=== PATIENT | female | born 1950 | race Caucasian/White ===

== ENCOUNTER 2018-11-01 13:20 | Inpatient (IN) | payer MEDICARE, MEDICAID ==
[~2018-11-01] VITALS: Ht 160 cm; Wt 81.6 kg
--- NOTE | 2018-11-01 13:27 | NUR ---
"[id number] FROM [facility], C/O SOB, FEVER, COUGHING x 1 WEEK" PT ALERT, AWAKE, PT ON MONITOR, VSS, PT TO BED 5, PENDING MD LANG
[2018-11-01] MEDS ORDERED: ACETAMINOPHEN ES 500 MG TABLET PO ONE (13:30)
[2018-11-01] MEDS ORDERED: VANCOMYCIN 1 GM in IV D5W 250 ML IV ONE (13:30)
[2018-11-01] MEDS ORDERED: PIPERACILLIN /TAZOBACTAM 3.375 G in IV D5W 50 ML IV ONE (13:30)
[2018-11-01] MEDS ORDERED: IV NS 0.9% 1,000 ML BAG IV ONE (13:30)
[2018-11-01] MEDS ORDERED: ACETAMINOPHEN ES 500 MG TABLET ONE (13:41)
[2018-11-01 13:43] LABS: BASOPHILS # (AUTO) 0.1 /CMM (0.0-0.2); BASOPHILS % (AUTO) 0.6 % (0.0-2.0); EOSINOPHILS % (AUTO) 0.8 % (0.0-6.0); HEMATOCRIT 48 % (33-45); HEMOGLOBIN 15.8 g/dL (11.5-14.8); LYMPHOCYTES # (AUTO) 0.8 /CMM (0.8-4.8); LYMPHOCYTES % (AUTO) 5.1 % (20.0-44.0); MEAN CORPUSCULAR HGB CONC 33 g/dl (31.0-36.0); MEAN CORPUSCULAR VOLUME 95 fL (82-100); MONOCYTES # (AUTO) 0.5 /CMM (0.1-1.30); NEUTROPHILS # (AUTO) 14.9 /CMM (1.8-8.9); NEUTROPHILS % (AUTO) 90.5 % (43.0-81.0); PLATELET COUNT (AUTO) 259 /CMM (150-450); RED BLOOD CELL COUNT(AUTO) 5.04 MIL/uL (4.0-5.2); WHITE BLOOD COUNT (AUTO) 16.5 K/uL (4.3-11.0)
[2018-11-01 13:57] LABS: ALBUMIN 3.7 g/dL (3.4-5.0); BILIRUBIN,DIRECT 0.2 mg/dL (0.0-0.2); BILIRUBIN,TOTAL 0.6 mg/dL (0.2-1.0); CALCIUM, SERUM 9.6 mg/dL (8.5-10.1); CREATININE 1.2 mg/dL (0.6-1.3); TOTAL PROTEIN, SERUM 7.8 g/dL (6.4-8.2)
--- NOTE | 2018-11-01 14:00 | NUR ---
LEONARDO (SON) CAN BE CONTACTED AT FOR UPDATES AND QUESTIONS
[2018-11-01 14:02] LABS: POTASSIUM 2.6 mmol/L (3.5-5.1)
--- NOTE | 2018-11-01 14:05 | NUR ---
UNIT AIDE TECH (ZARINA) PAGED FOR JORDAN
[2018-11-01 14:06] LABS: APPEARANCE,URINE Cloudy (CLEAR); BILIRUBIN,URINE Negative (NEGATIVE); BLOOD, URINE Small Ery/uL (NEGATIVE); COLOR,URINE Yellow (YELLOW); KETONES,URINE Negative (NEGATIVE); LEUKOCYTE ESTERASE ,URINE Negative (NEGATIVE); NITRITE, URINE Positive (NEGATIVE); PH,URINE 5.5 (5.0-8.0); PROTEIN,URINE Trace mg/dl (NEGATIVE); UGLUCOSE Negative (NEGATIVE); UROBILINOGEN,URINE 0.2 EU/dL (0.2)
[2018-11-01] MEDS ORDERED: POTASSIUM CL. PREMIX PERIPHER. 50 ML ONE ×2 (14:09→14:45)
[2018-11-01 14:10] LABS: ABG BASE EXCESS 8.2 mmol/L; ABG OXYGEN SATURATION 98.3 % (92.0-98.5); ABG PCO2 46.3 mmHg (35.0-45.0); ABG PH 7.472 (7.350-7.450); ABG PO2 144.7 mmHg (75.0-100.0); AaDO2 232.2 mmHg; COHb 5.4 % (0.5-1.5); MetHb 0.3 % (0.0-1.5); O2Hb 92.7 % (94.0-97.0); SITE, ABG Right Radial; VENT MODE, BG 10L SM
[2018-11-01] MEDS ORDERED: GABA600T12 PO (14:12)
[2018-11-01] MEDS ORDERED: FURO-144 PO (14:12)
[2018-11-01] MEDS ORDERED: CLON2TAB PO (14:12)
[2018-11-01] MEDS ORDERED: OXYB10TA4 PO (14:12)
[2018-11-01] MEDS ORDERED: NA P133E RC (14:12)
[2018-11-01] MEDS ORDERED: ZOLP5TAB2 PO (14:12)
[2018-11-01] MEDS ORDERED: HYDR-3976 PO (14:12)
[2018-11-01] MEDS ORDERED: ESCI10TA PO (14:12)
[2018-11-01] MEDS ORDERED: MULT-439 PO (14:12)
[2018-11-01] MEDS ORDERED: LEVO150T8 PO (14:12)
[2018-11-01] MEDS ORDERED: METH500T7 PO (14:12)
[2018-11-01] MEDS ORDERED: POTA20TA83 PO (14:12)
[2018-11-01] MEDS ORDERED: POLY17PO4 PO (14:12)
[2018-11-01] MEDS ORDERED: DOCU-141 PO (14:12)
[2018-11-01] MEDS ORDERED: ATEN50TA PO (14:12)
[2018-11-01] MEDS ORDERED: DICL100G16 TP (14:12)
[2018-11-01] MEDS ORDERED: BISA10SU11 RC (14:12)
[2018-11-01] MEDS ORDERED: TYL2T PO (14:12)
[2018-11-01] MEDS ORDERED: HYDR25TA4 PO (14:12)
[2018-11-01] MEDS ORDERED: MAGN400O6 PO (14:12)
[2018-11-01] MEDS ORDERED: CELE200C PO (14:12)
[2018-11-01] MEDS ORDERED: PANT20TA2 PO (14:12)
[2018-11-01] MEDS ORDERED: TRAM50TA2 PO ×2 (14:12)
[2018-11-01 14:13] LABS: BACTERIA,URINE Moderate /HPF (None Seen); SQUAMOUS EPITHELIAL CELL,UR Few /HPF (None Seen); WBC,URINE 0-3 /HPF (0-3)
[2018-11-01] MEDS: POTASSIUM CL. PREMIX PERIPHER. 50 ML IV SCH ×4 (14:16→18:50)
--- NOTE | 2018-11-01 14:53 | NUR ---
RECIEVED BED 107
[2018-11-01] MEDS ORDERED: MAGNESIUM HYDROXIDE 30 ML UDC PO PRN (15:00)
[2018-11-01] MEDS ORDERED: ONDANSETRON HCL/PF 4 MG/2 ML VIAL IVP PRN (15:00)
[2018-11-01] MEDS ORDERED: MAG HYDROX/AL HYDROX/SIMETH 30 ML UDC PO PRN (15:00)
[2018-11-01] MEDS ORDERED: ACETAMINOPHEN 325 MG TABLET PO PRN (15:00)
[2018-11-01] MEDS ORDERED: Z GUARD REMEDY 2 OZ OINT TP PRN (15:00)
--- NOTE | 2018-11-01 15:08 | NUR ---
REPORT GIVEN TO HAKEEM FIGUEROA FOR SUSHMA PT WILL BE TRANSPORTED TO 1ST FLOOR VIA ACLS PROTOCOL
[2018-11-01] MEDS ORDERED: FEE PK DOSING 1 MIN EA MC ONE (15:25)
[2018-11-01] MEDS ORDERED: BISACODYL SUPP (10 MG) 10 MG/SUPP.RECT SUPP.RECT RC PRN (15:30)
--- NOTE | 2018-11-01 15:58 | NUR ---
PT TRANSPORTED TO 1ST FLOOR
[2018-11-01 16:00] VITALS: BP 106/46
--- NOTE | 2018-11-01 16:00 | NUR ---
VEGETABLE FARM WORKER NOTES RECEIVED PATIENT FROM ER, DX SEPSIS BY VICKI SRINIVASAN NP. AO X 1-2, LETHARGIC, ABLE TO ANSWER QUESTIONS, ON 4 LPM NASAL CANULA, NOT IN ANY DISTRESS, DENIES PAIN, SR HR 56 ON TELE MONITOR. RAC G 20 AND LFA G20 IV ACCESS, BOTH FLUSHES WELL, BOTH SITES CLEAR. PATIENT WITH ONGOING KCL INFUSING TO RAC. WILL TRANSFUSE ADDITIONAL BAG FOR TOTAL ORDER OF 4 BAGS FROM ER. WITH DIAPER. UNIT ORIENTATION DONE. USE OF CALL LIGHT, BED LOW LOCKED. WILL CONT TO MONITOR.
--- NOTE | 2018-11-01 16:25 | NUR ---
COCKTAIL LOUNGE MANAGER NOTES DR. DORSEY AT BEDSIDE. ABLE TO SPEAK TO PATIENT. ORDERED FOR K DUR 3 DOSES.
[2018-11-01 16:52] LABS: THYROID STIMULATING HORMONE 0.757 uIU/mL (0.358-3.74)
[2018-11-01 16:55] LABS: MAGNESIUM 2.2 mg/dL (1.8-2.4)
[2018-11-01] MEDS: clonazePAM 1 MG TABLET PO SCH ×2 (17:00→17:14)
[2018-11-01] MEDS: POTASSIUM CHLORIDE 20 MEQ TAB.PRT.SR PO SCH ×6 (17:00→22:44)
[2018-11-01] MEDS ORDERED: clonazePAM 2 MG TABLET PO SCH (17:00)
[2018-11-01] MEDS ORDERED: DICLOFENAC TOPICAL 100 GM GEL..GM. TP SCH (17:00)
[2018-11-01] MEDS: DOCUSATE SODIUM 100 MG CAPSULE PO SCH ×2 (17:00→17:14)
[2018-11-01] MEDS: METHOCARBAMOL (500MG) 500 MG TABLET PO SCH ×2 (17:00→17:14)
[2018-11-01] MEDS: GABAPENTIN 300 MG CAPSULE PO SCH ×2 (17:00→17:13)
[2018-11-01] MEDS: ENOXAPARIN SODIUM 40 MG/0.4 ML DISP.SYRIN SQ SCH (17:32)
--- NOTE | 2018-11-01 17:56 | NUR ---
MINE MANAGER NOTES MEDICATIONS NOT GIVEN. PATIENT TOO LETHARGIC
[2018-11-01] MEDS ORDERED: PIPERACILLIN /TAZOBACTAM 3.375 G in IV D5W 50 ML IV SCH (18:00)
--- NOTE | 2018-11-01 18:05 | NUR ---
TILER NOTES PATIENT REMAINS LETHARGIC. O2 SAT MORE THAN 90%. CHARGE NURSE SOON AWARE. MADE AWARE.
[2018-11-01 18:30] VITALS: BP 106/46
--- NOTE | 2018-11-01 19:33 | NUR ---
ZIGZAG APPLIQUER NOTES ALL NEEDS MET AT THIS TIME. NOT IN DISTRESS. ENDORSED TO NEXT SHIFT FOR SUSHMA.
[2018-11-01 20:00] VITALS: BP_SYST 92; BP_SYST 97; BP_DIAS 49
--- NOTE | 2018-11-01 20:00 | NUR ---
MS RN NOTE PT IN BED LETHARGIC, NO SOB, NO DISTRESS OR DISCOMFORT NOTED. NO S/S OF PAIN NOTED. SL RAC AND LFA INTACT AND PATENT. ALL NEEDS ATTENDED. VSS CONTINUE TO MONITOR HER. Addendum: 11/02/18 at 0334 by LARRY CARPENTER RN CHARTED ACCIDENTLY UNDER WRONG EMPLOYEE.
--- NOTE | 2018-11-01 21:00 | NUR ---
MS FIGUEROA NOTE PT IS MORE AWAKE NOW. A/O X 2-3. NO DISTRESS NOTED. K JESSE GIVEN ORDERED. CONTINUE TO MONITOR HER. Addendum: 11/02/18 at 0334 by LARRY CARPENTER RN CHARTED ACCIDENTLY UNDER WRONG EMPLOYEE.
[2018-11-01] MEDS ORDERED: POTASSIUM CHLORIDE 20 MEQ TAB.PRT.SR PO ONE (21:14)
[2018-11-01] MEDS: PIPERACILLIN /TAZOBACTAM 3.375 G in IV D5W 100 ML IV SCH (21:19)
[2018-11-01] MEDS: ZOLPIDEM TARTRATE 5 MG TABLET PO SCH (21:28)
[2018-11-02] VITALS: BP 115/35
[2018-11-02] MEDS: POTASSIUM CHLORIDE 20 MEQ TAB.PRT.SR PO SCH (01:06)
[2018-11-02 04:00] VITALS: BP 119/64
[2018-11-02 05:00] VITALS: BP 119/64
[2018-11-02] MEDS: PIPERACILLIN /TAZOBACTAM 3.375 G in IV D5W 100 ML IV SCH ×3 (05:31→21:06)
[2018-11-02 06:51] LABS: CALCIUM, SERUM 8.4 mg/dL (8.5-10.1); CARBON DIOXIDE 35 mmol/L (21-32); CHLORIDE 105 mmol/L (98-107); CREATININE 0.9 mg/dL (0.6-1.3); GLUCOSE 86 mg/dL (74-106); POTASSIUM 3.4 mmol/L (3.5-5.1); SODIUM SERUM 145 mmol/L (136-145); UREA NITROGEN, BLOOD 13 mg/dL (7-18)
[2018-11-02 06:54] LABS: MAGNESIUM 2.2 mg/dL (1.8-2.4); PHOSPHORUS 2.4 mg/dL (2.5-4.9)
--- NOTE | 2018-11-02 06:58 | NUR ---
MS RN NOTE PT IN BED ASLEEP AROUSABLE. NO DISTRESS OR DISCOMFORT NOTED. DENIES PAIN. SL INTACT AND PATENT. SIDE RAILS UP X 2 AND CALL LIGHT WITHIN REACH. WILL ENDORSE TO DAY SHIFT NURSE FOR CONTINUE TO CARE.
--- NOTE | 2018-11-02 07:30 | NUR ---
PATIENT RESTING IN ROOM - EYES CLOSED- CHEST RISING AND FALLING- NO S/S OD DISTRESS- SAFETY PRECAUTIONS IN PLACE- RECEIVED BEDSIDE SBAR- WILL CONTINUE TO MONITOR REPORT AND RECORD
[2018-11-02 07:35] LABS: BASOPHILS # (AUTO) 0.1 /CMM (0.0-0.2); BASOPHILS % (AUTO) 0.6 % (0.0-2.0); EOSINOPHILS % (AUTO) 1.5 % (0.0-6.0); HEMATOCRIT 42 % (33-45); HEMOGLOBIN 13.9 g/dL (11.5-14.8); LYMPHOCYTES # (AUTO) 1.8 /CMM (0.8-4.8); LYMPHOCYTES % (AUTO) 12.3 % (20.0-44.0); MEAN CORPUSCULAR HGB CONC 33 g/dl (31.0-36.0); MEAN CORPUSCULAR VOLUME 95 fL (82-100); MONOCYTES # (AUTO) 0.8 /CMM (0.1-1.30); MONOCYTES % (AUTO) 5.4 % (2.0-12.0); NEUTROPHILS # (AUTO) 11.8 /CMM (1.8-8.9); NEUTROPHILS % (AUTO) 80.2 % (43.0-81.0); PLATELET COUNT (AUTO) 200 /CMM (150-450); RED BLOOD CELL COUNT(AUTO) 4.46 MIL/uL (4.0-5.2); WHITE BLOOD COUNT (AUTO) 14.8 K/uL (4.3-11.0)
[2018-11-02 08:00] VITALS: BP 122/56
[2018-11-02 08:19] LABS: CHOLESTEROL 185 mg/dL (<200); HDL CHOLESTEROL 32 mg/dL (40-60); LDL 123 mg/dL (0-99); THYROID STIMULATING HORMONE 0.374 uIU/mL (0.358-3.74); TRIGLYCERIDES 144 mg/dL (30-150)
[2018-11-02] MEDS ORDERED: ATENOLOL 50 MG TABLET PO SCH (09:00)
[2018-11-02] MEDS: clonazePAM 1 MG TABLET PO SCH ×2 (09:42→16:41)
[2018-11-02] MEDS: DOCUSATE SODIUM 100 MG CAPSULE PO SCH ×2 (09:42→16:41)
[2018-11-02] MEDS: POLYETHYLENE GLYCOL 3350 17 GM POWD.PACK PO SCH (09:42)
[2018-11-02] MEDS: METHOCARBAMOL (500MG) 500 MG TABLET PO SCH ×3 (09:42→17:53)
[2018-11-02] MEDS: MULTIVIT W/MINERALS 1 TAB TABLET PO SCH (09:43)
[2018-11-02] MEDS: GABAPENTIN 300 MG CAPSULE PO SCH ×2 (09:43→16:41)
[2018-11-02] MEDS: PANTOPRAZOLE 40 MG TABLET.DR PO SCH (09:43)
[2018-11-02] MEDS: LEVOTHYROXINE SODIUM 75 MCG TABLET PO SCH (09:43)
[2018-11-02] MEDS: CELECOXIB 100 MG CAPSULE PO SCH (09:43)
[2018-11-02] MEDS: OXYBUTYNIN CHLORIDE ER 5 MG TAB PO SCH (09:51)
[2018-11-02] MEDS: ESCITALOPRAM OXALATE (10 MG) 10 MG TABLET PO SCH (09:52)
[2018-11-02] MEDS: VANCOMYCIN 1 GM in IV D5W 250 ML IV SCH (09:52)
[2018-11-02 09:53] LABS: ABG BASE EXCESS 11.6 mmol/L; ABG OXYGEN SATURATION 98.9 % (92.0-98.5); ABG PCO2 54.8 mmHg (35.0-45.0); ABG PH 7.456 (7.350-7.450); ABG PO2 222.1 mmHg (75.0-100.0); AaDO2 145.4 mmHg; COHb 3.7 % (0.5-1.5); MetHb 0.3 % (0.0-1.5); O2Hb 94.9 % (94.0-97.0); SITE, ABG Left Brachial; VENT MODE, BG NON REBREATHER
[2018-11-02] MEDS ORDERED: IV NS 0.9% 250 ML IV ONE (10:52)
[2018-11-02] MEDS ORDERED: CT SWABBABLE VALVE TRANS SET 1 EA INFUS.SET MC ONE (10:52)
[2018-11-02] MEDS ORDERED: IOHEXOL-300 100 ML VIAL IV ONE (10:52)
[2018-11-02] MEDS ORDERED: POTASSIUM CHLORIDE 20 MEQ TAB.PRT.SR PO SCH (12:00)
--- NOTE | 2018-11-02 13:14 | NUR ---
patient rest in bed watching tv- safety precautions in place- vitals stable- no complaints of pain - patient ambulating with assist to bathroom- will continue to monitor report and record
[2018-11-02] MEDS ORDERED: K PHOS NEUTRAL 250 MG TABLET PO ONE (14:00)
[2018-11-02 16:00] VITALS: BP 118/58
--- NOTE | 2018-11-02 16:04 | NUR ---
patient resting in room - about to go to radiology for a head CT- no complaints of pain - safety precautions in place- vitals stable - will continue to monitor report and record
[2018-11-02] MEDS ORDERED: VANCOMYCIN HCL 1 GM in IV D5W 260 ML IV ONE (16:30)
[2018-11-02] MEDS: ASPIRIN 81 MG TAB.CHEW PO SCH (17:53)
--- NOTE | 2018-11-02 18:20 | NUR ---
patient currently eating in bed- safety precautions in place- will provide bedside sbar to oncoming - will continue to monitor report and record
--- NOTE | 2018-11-02 19:00 | NUR ---
MS RN NOTE RECEIVED PT IN STABLE CONDITION A/O X 2-3, CURRENTLY IN BED SPEAKING ON THE PHONE. NO SIGNS OF SOB OR DISTRESS, NO C/O PAIN. IV IN RAC #[address] WITH IV ZOSYN INFUSING. ALL CURRENT NEEDS MET. BED LOW, LOCKED, UPPER RAILS UP, AND CALL LIGHT WITHIN REACH. WILL CONT.TO MONITOR.
[2018-11-02 20:00] VITALS: BP 134/48
[2018-11-02] MEDS: HYDROCODONE/APAP 5/325MG 1 EACH TABLET PO PRN (21:06)
[2018-11-02] MEDS: ZOLPIDEM TARTRATE 5 MG TABLET PO SCH (21:06)
[2018-11-02] MEDS: ENOXAPARIN SODIUM 40 MG/0.4 ML DISP.SYRIN SQ SCH (21:06)
[2018-11-02] MEDS: ATORVASTATIN 40 MG TABLET PO SCH (21:06)
[2018-11-03] MEDS: VANCOMYCIN 1 GM in IV D5W 250 ML IV SCH ×2 (01:18→21:22)
[2018-11-03] MEDS: HYDROCODONE/APAP 5/325MG 1 EACH TABLET PO PRN ×5 (01:26→21:52)
[2018-11-03 04:00] VITALS: BP 112/43
[2018-11-03] MEDS: PIPERACILLIN /TAZOBACTAM 3.375 G in IV D5W 100 ML IV SCH ×3 (04:18→21:22)
[2018-11-03] MEDS: PANTOPRAZOLE 40 MG TABLET.DR PO SCH (06:32)
--- NOTE | 2018-11-03 06:37 | NUR ---
MS RN NOTE PT IN STABLE CONDITION A/O X 2-3, CURRENTLY IN BED SPEAKING ON THE PHONE. NO SIGNS OF SOB OR DISTRESS, NO C/O PAIN. IV IN R WRIST #[address] WITH IV ZOSYN INFUSING. ALL CURRENT NEEDS MET. BED LOW, LOCKED, UPPER RAILS UP, AND CALL LIGHT WITHIN REACH. WILL CONT.TO MONITOR AND ENDORSE TO NEXT SHIFT FOR SUSHMA.
--- NOTE | 2018-11-03 07:00 | NUR ---
MS RN OPENING RECEIVED PATIENT IN BED SLEEPING. A/OX3. NO ACUTE DISTRESS OR SOB NOTED. SPEECH DELAYED. FACE SYMMETRICAL, SHOULDER SHRUG AND FINGER NETWORK SYSTEMS ADMINISTRATOR EQUAL. NO ONE SIDED WEAKNESS, DENIES HEADACHE. R WRIST 24G IV C/D/I. AMBULATORY. CALL LIGHT WITHIN REACH, WILL CONTINUE TO MONITOR
[2018-11-03 08:00] VITALS: BP 107/59
[2018-11-03] MEDS: POLYETHYLENE GLYCOL 3350 17 GM POWD.PACK PO SCH (09:03)
[2018-11-03] MEDS: CELECOXIB 100 MG CAPSULE PO SCH (09:04)
[2018-11-03] MEDS: clonazePAM 1 MG TABLET PO SCH ×2 (09:04→16:17)
[2018-11-03] MEDS: ESCITALOPRAM OXALATE (10 MG) 10 MG TABLET PO SCH (09:05)
[2018-11-03] MEDS: ASPIRIN 81 MG TAB.CHEW PO SCH (09:05)
[2018-11-03] MEDS: METHOCARBAMOL (500MG) 500 MG TABLET PO SCH ×3 (09:05→16:17)
[2018-11-03] MEDS: GABAPENTIN 300 MG CAPSULE PO SCH ×2 (09:06→16:19)
[2018-11-03] MEDS: OXYBUTYNIN CHLORIDE ER 5 MG TAB PO SCH (09:06)
[2018-11-03] MEDS: DOCUSATE SODIUM 100 MG CAPSULE PO SCH ×2 (09:06→16:19)
[2018-11-03] MEDS: MULTIVIT W/MINERALS 1 TAB TABLET PO SCH (09:06)
[2018-11-03] MEDS: LEVOTHYROXINE SODIUM 75 MCG TABLET PO SCH (09:14)
[2018-11-03] MEDS: CARVEDILOL 12.5 MG TABLET PO SCH ×2 (09:15→21:52)
[2018-11-03] MEDS ORDERED: FUROSEMIDE 40 MG/4 ML VIAL IV SCH (09:30)
--- NOTE | 2018-11-03 11:46 | NUR ---
PATIENT TAKEN TO CT
[2018-11-03] MEDS ORDERED: IV NS 0.9% 250 ML IV ONE (11:54)
[2018-11-03] MEDS ORDERED: CT SWABBABLE VALVE TRANS SET 1 EA INFUS.SET MC ONE (11:54)
[2018-11-03] MEDS ORDERED: IOHEXOL-350 100 ML VIAL IV ONE (11:54)
[2018-11-03 14:39] LABS: BASOPHILS # (AUTO) 0.2 /CMM (0.0-0.2); BASOPHILS % (AUTO) 1.5 % (0.0-2.0); EOSINOPHILS % (AUTO) 2.3 % (0.0-6.0); HEMATOCRIT 42 % (33-45); LYMPHOCYTES % (AUTO) 9.8 % (20.0-44.0); MEAN CORPUSCULAR HGB CONC 33 g/dl (31.0-36.0); MEAN CORPUSCULAR VOLUME 95 fL (82-100); MONOCYTES # (AUTO) 0.3 /CMM (0.1-1.30); MONOCYTES % (AUTO) 3.2 % (2.0-12.0); NEUTROPHILS # (AUTO) 8.2 /CMM (1.8-8.9); NEUTROPHILS % (AUTO) 83.2 % (43.0-81.0); PLATELET COUNT (AUTO) 192 /CMM (150-450); RED BLOOD CELL COUNT(AUTO) 4.42 MIL/uL (4.0-5.2); WHITE BLOOD COUNT (AUTO) 9.9 K/uL (4.3-11.0)
[2018-11-03 14:47] LABS: CALCIUM, SERUM 8.3 mg/dL (8.5-10.1); CREATININE 1.1 mg/dL (0.6-1.3)
[2018-11-03 14:53] LABS: POTASSIUM 2.6 mmol/L (3.5-5.1)
--- NOTE | 2018-11-03 15:03 | NUR ---
RECEIVED CALL FROM TASIA AT LAB, CRIT POTASSIUM LEVEL. CALLED DR. RUTLEDGE [facility]IA [facility], RECEIVED ORDERS
[2018-11-03 16:00] VITALS: BP 117/56
[2018-11-03] MEDS: POTASSIUM CHLORIDE 20 MEQ TAB.PRT.SR PO SCH ×2 (16:17→19:28)
--- NOTE | 2018-11-03 18:00 | NUR ---
DR. BRICENO AWARE OF CTA BRAIN RESULTS. ORDERED CONSULT FOR DR. GARNER. LEFT MESSAGE IN OFFICE VOICEMAIL
[2018-11-03] MEDS: MUPIROCIN OINT 2% 22 GM TUBE SCH ×2 (18:56→21:23)
--- NOTE | 2018-11-03 19:37 | NUR ---
MS RN CLOSING PATIENT A/OX3. NO ACUTE DISTRESS OR SOB NOTED. ON ROOM AIR, SPO2 94%. SPEECH DELAYED. FACE SYMMETRICAL, SHOULDER SHRUG AND FINGER PLASTIC SHAPER EQUAL. NO ONE SIDED WEAKNESS, DENIES HEADACHE. IV SITE X3 C/D/I. AMBULATORY. BED LOCKED, LOW, BED ALARM ON, SIDE RAILS UPX2, CALL LIGHT WITHIN REACH. ENDORSED TO NOC RN FOR SUSHMA.
[2018-11-03 20:00] VITALS: BP 111/54
[2018-11-03] MEDS: ENOXAPARIN SODIUM 40 MG/0.4 ML DISP.SYRIN SQ SCH (21:50)
[2018-11-03] MEDS: ZOLPIDEM TARTRATE 5 MG TABLET PO SCH (21:53)
[2018-11-03] MEDS: ATORVASTATIN 40 MG TABLET PO SCH (21:54)
[2018-11-04 04:00] VITALS: BP 121/57
[2018-11-04] MEDS: PIPERACILLIN /TAZOBACTAM 3.375 G in IV D5W 100 ML IV SCH (05:00)
[2018-11-04] MEDS: LEVOTHYROXINE SODIUM 75 MCG TABLET PO SCH (07:19)
[2018-11-04] MEDS: PANTOPRAZOLE 40 MG TABLET.DR PO SCH (07:19)
[2018-11-04] MEDS: HYDROCODONE/APAP 5/325MG 1 EACH TABLET PO PRN ×2 (07:21→13:45)
[2018-11-04 07:57] LABS: CALCIUM, SERUM 8.4 mg/dL (8.5-10.1); CREATININE 0.9 mg/dL (0.6-1.3); POTASSIUM 3.6 mmol/L (3.5-5.1)
[2018-11-04 08:00] VITALS: BP_SYST 120; BP_SYST 124; BP_DIAS 60; BP_DIAS 66
[2018-11-04] MEDS: MUPIROCIN OINT 2% 22 GM TUBE SCH (08:59)
[2018-11-04] MEDS: METHOCARBAMOL (500MG) 500 MG TABLET PO SCH ×2 (08:59→13:34)
[2018-11-04] MEDS: CARVEDILOL 12.5 MG TABLET PO SCH (09:01)
[2018-11-04] MEDS: CELECOXIB 100 MG CAPSULE PO SCH (09:01)
[2018-11-04] MEDS: ESCITALOPRAM OXALATE (10 MG) 10 MG TABLET PO SCH (09:01)
[2018-11-04] MEDS: clonazePAM 1 MG TABLET PO SCH (09:02)
[2018-11-04] MEDS: MULTIVIT W/MINERALS 1 TAB TABLET PO SCH (09:02)
[2018-11-04] MEDS: GABAPENTIN 300 MG CAPSULE PO SCH (09:02)
[2018-11-04] MEDS: ASPIRIN 81 MG TAB.CHEW PO SCH (09:02)
[2018-11-04] MEDS: POLYETHYLENE GLYCOL 3350 17 GM POWD.PACK PO SCH (09:02)
[2018-11-04] MEDS: DOCUSATE SODIUM 100 MG CAPSULE PO SCH (09:03)
[2018-11-04] MEDS: OXYBUTYNIN CHLORIDE ER 5 MG TAB PO SCH (09:06)
[2018-11-04] MEDS ORDERED: MERO500V IV (11:21)
[2018-11-04] MEDS ORDERED: ATOR40TA PO (11:29)
[2018-11-04] MEDS ORDERED: ASPI-1169 PO (11:29)
--- NOTE | 2018-11-04 11:30 | NUR ---
alert, oriented, and appropriate. no complaint of pain, nor in any resp distress when first seen this am. appetite 100% for breakfast.
[2018-11-04 12:00] VITALS: BP 113/61
[2018-11-04] MEDS ORDERED: MEROPENEM 500 MG in IV NS 0.9% 50 ML IV SCH (13:00)
--- NOTE | 2018-11-04 15:33 | NUR ---
Written order to transfer patient back to [place], [place]. Report given to the admission office this evening. patient alert, oriented, no further complaint
[2018-11-04 16:21] VITALS: BP_SYST 112; BP_SYST 123; BP_DIAS 46; BP_DIAS 52
[2018-11-04] MEDS ORDERED: LACTOBACILLUS RHAMNOSUS GG 1 EACH CAP.SPRINK PO SCH (17:00)
--- NOTE | 2018-11-04 17:05 | NUR ---
alert, oriented, appropriate, no complaint of pain, no fever. Picked up by ambulance to go back to [place] [facility], left the floor at 1700
== END 2018-11-04 16:55 | DRG 871 ==
LOC: ER 13:41 → TELE1 15:08 → MEDSG1 11-02 08:19
PROVIDERS: ADMIT Nurse Practitioner Acute Care; ATTEND Internal Medicine
PROC: 05H533Z Insertion of Infusion Device into Right Subclavian Vein, Percutaneous Approach (ICD-10-PCS; principal; 2018-11-03)
PROC: B546ZZA Ultrasonography of Right Subclavian Vein, Guidance (ICD-10-PCS; 2018-11-03)
DX: A41.9 Sepsis, unspecified organism (principal); G93.41 Metabolic encephalopathy; J96.01 Acute respiratory failure with hypoxia; I50.31 Acute diastolic (congestive) heart failure; J15.6 Pneumonia due to other Gram-negative bacteria; N39.0 Urinary tract infection, site not specified; J44.0 Chronic obstructive pulmonary disease with (acute) lower respiratory infection; R47.01 Aphasia; E87.6 Hypokalemia; I11.0 Hypertensive heart disease with heart failure; J44.9 Chronic obstructive pulmonary disease, unspecified; E03.9 Hypothyroidism, unspecified; E66.9 Obesity, unspecified; E78.5 Hyperlipidemia, unspecified; Z16.12 Extended spectrum beta lactamase (ESBL) resistance; Z86.73 Personal history of transient ischemic attack (TIA), and cerebral infarction without residual deficits; K21.9 Gastro-esophageal reflux disease without esophagitis; Z87.01 Personal history of pneumonia (recurrent); Z96.641 Presence of right artificial hip joint; F17.200 Nicotine dependence, unspecified, uncomplicated; F41.9 Anxiety disorder, unspecified; F32.9 Major depressive disorder, single episode, unspecified; Z68.31 Body mass index [BMI] 31.0-31.9, adult; Z22.322 Carrier or suspected carrier of Methicillin resistant Staphylococcus aureus; I67.1 Cerebral aneurysm, nonruptured; M47.9 Spondylosis, unspecified
CPT/HCPCS: 36415; 36600; 70450-TC; 70496-TC; 70498-TC; 71045-TC; 71260-TC; 80048-TC; 80061-TC; 80076-TC; 80202-TC; 81000-TC; 83605-TC; 83735-TC; 83880; 84100-TC; 84439-TC; 84443-TC; 84484-TC; 85025-TC; 85730-TC; 87040-TC; 87081-TC; 87086-TC; 87186-TC; 93307-TC; 97116-TC; 97530-TC; A4216; G0378; J1650; J1940; J2185; J2543; J3370; J3480; J7030; J7050; J7060; Q9967

== ENCOUNTER 2019-08-03 12:41 | Inpatient (IN) | payer MEDICARE, OTHER ==
[~2019-08-03] VITALS: Ht 160 cm; Wt 73.5 kg
[~2019-08-03 12:41] MED LIST: ASPI-1169 PO; ATEN50TA PO; ATOR40TA PO; BISA10SU11 RC; CELE200C PO; CLON2TAB PO; DICL100G16 TP; DOCU-141 PO; ESCI10TA PO; FURO-144 PO; GABA600T12 PO; HYDR-3976 PO; HYDR25TA4 PO; LEVO150T8 PO; MAGN400O6 PO; MERO500V21 IV; METH500T7 PO; MULT-439 PO; NA P133E RC; OXYB10TA4 PO; PANT20TA2 PO; POLY17PO4 PO; POTA20TA83 PO; TRAM50TA2 PO; TYL2T PO; ZOLP5TAB2 PO
--- NOTE | 2019-08-03 12:42 | NUR ---
APRIL 102 FROM [facility], C/O SOB, DESATURATION AT 89% RA PER REPORT, + CORONAVIRUS TEST, TO ER BED 8, HOOKED TO PSYCHOLOGIST PRIVATE PRACTICE AND POX, O2 SATURATION AT 79% RA, HOOKED TO 4LPM O2 VIA NC, O2 SAT WENT UP TO 94%, CHANGED TO HOSP GOWN, NOTED WITH 102.3F ORAL TEMP, PATIENT AAO x 2, DR JON AT BEDSIDE.
[2019-08-03] MEDS ORDERED: PIPERACILLIN /TAZOBACTAM 3.375 G in IV D5W 50 ML IV ONE (13:00)
[2019-08-03] MEDS ORDERED: VANCOMYCIN 1 GM in IV D5W 250 ML IV ONE (13:00)
--- NOTE | 2019-08-03 13:02 | NUR ---
IV PERIPHERAL LINE ESATBLISHED AT LFA 20G.
[2019-08-03 13:04] LABS: BASOPHILS % (AUTO) 0.4 % (0.0-2.0); EOSINOPHILS % (AUTO) 0.5 % (0.0-6.0); HEMATOCRIT 37 % (33-45); HEMOGLOBIN 12.4 g/dL (11.5-14.8); LYMPHOCYTES # (AUTO) 0.8 /CMM (0.8-4.8); LYMPHOCYTES % (AUTO) 21.4 % (20.0-44.0); MEAN CORPUSCULAR HGB CONC 34 g/dl (31.0-36.0); MEAN CORPUSCULAR VOLUME 94 fL (82-100); MONOCYTES # (AUTO) 0.3 /CMM (0.1-1.30); MONOCYTES % (AUTO) 8.9 % (2.0-12.0); NEUTROPHILS # (AUTO) 2.5 /CMM (1.8-8.9); NEUTROPHILS % (AUTO) 68.8 % (43.0-81.0); PLATELET COUNT (AUTO) 156 /CMM (150-450); RED BLOOD CELL COUNT(AUTO) 3.91 MIL/uL (4.0-5.2); WHITE BLOOD COUNT (AUTO) 3.6 K/uL (4.3-11.0)
[2019-08-03] MEDS ORDERED: PIPERACILLIN /TAZOBACTAM 3.375 G VIAL IV ONE (13:06)
[2019-08-03 13:12] LABS: CALCIUM, SERUM 8.5 mg/dL (8.5-10.1); CREATININE 1.2 mg/dL (0.6-1.3); POTASSIUM 3.3 mmol/L (3.5-5.1)
--- NOTE | 2019-08-03 13:16 | NUR ---
URINE SAMPLE COLLECTED VIA STRAIGHT CATHETER, URINE SAMPLE SENT TO LAB
[2019-08-03] MEDS ORDERED: OXYB-58 PO (13:20)
[2019-08-03] MEDS ORDERED: ASCO-352 PO (13:21)
[2019-08-03] MEDS ORDERED: SENN-261 PO (13:21)
[2019-08-03] MEDS ORDERED: ASPI-1169 PO (13:21)
[2019-08-03] MEDS ORDERED: ACET-2605 PO (13:21)
[2019-08-03] MEDS ORDERED: ATOR40TA PO (13:21)
[2019-08-03] MEDS ORDERED: LIDO30AD10 TP (13:21)
[2019-08-03] MEDS ORDERED: METH750T3 PO (13:21)
--- NOTE | 2019-08-03 13:22 | NUR ---
GARMENT FOLDER AT BEDSIDE FOR XRAY
[2019-08-03] MEDS ORDERED: LORAZEPAM INJ 2 MG/ML VIAL ONE (13:25)
[2019-08-03] MEDS ORDERED: ACETAMINOPHEN ES 500 MG TABLET ONE (13:28)
[2019-08-03 13:29] LABS: BILIRUBIN,TOTAL 0.4 mg/dL (0.2-1.0); TOTAL PROTEIN, SERUM 7.3 g/dL (6.4-8.2)
[2019-08-03] MEDS ORDERED: LORAZEPAM INJ 2 MG/ML VIAL IV ONE (13:30)
[2019-08-03] MEDS ORDERED: ACETAMINOPHEN ES 500 MG TABLET PO ONE (13:30)
[2019-08-03] MEDS ORDERED: IV NS 0.9% 1,000 ML BAG IV ONE (13:30)
[2019-08-03 13:32] LABS: D-DIMER 1.83 mg/L(FEU (0.17-0.50)
[2019-08-03 14:21] LABS: C-REACTIVE PROTEIN 21.4 mg/dL (0.0-0.9)
--- NOTE | 2019-08-03 14:25 | NUR ---
PATIENT IN BED ASLEEP, EASILY AROUSABLE BY VOICE, HOOKED TO RADIOACTIVE WASTE DISPOSAL DISPATCHER AND POX, O2 SAT AT 95%, WILL CONTINUE TO MONITOR ACCORDINGLY
--- NOTE | 2019-08-03 14:42 | NUR ---
bed 103
--- NOTE | 2019-08-03 14:48 | NUR ---
REPORT GIVEN TO BONNIE FIGUEROA OF TELE UNIT
[2019-08-03 14:52] VITALS: BP 93/54
[2019-08-03 15:12] LABS: APPEARANCE,URINE Clear (CLEAR); BILIRUBIN,URINE Negative (NEGATIVE); BLOOD, URINE Small Ery/uL (NEGATIVE); COLOR,URINE Yellow (YELLOW); KETONES,URINE Negative (NEGATIVE); LEUKOCYTE ESTERASE ,URINE Negative (NEGATIVE); NITRITE, URINE Positive (NEGATIVE); PROTEIN,URINE 100 mg/dl (NEGATIVE); UGLUCOSE Negative (NEGATIVE); UROBILINOGEN,URINE 0.2 EU/dL (0.2)
[2019-08-03 15:27] LABS: BACTERIA,URINE Many /HPF (None Seen); SQUAMOUS EPITHELIAL CELL,UR Few /HPF (None Seen)
--- NOTE | 2019-08-03 15:30 | NUR ---
RN OPENING NOTES RECEIVED PATIENT VIA CHANDRAKANTRTAYO FROM THE ED. PT IS AOX2, VERBAL, AND AMBULATORY WITH ASSIST. SHE IS ON 4L OF OXYGEN VIA NC, TOLERATING WELL, NO SOB OR RESP DISTRESS. LUNGS SOUND DIMINISHED. PT DENIES ANY CHEST PAIN AT THIS TIME. SKIN IS INTACT. IV SITE ON LFA 20 G, PATENT AND INTACT. PT TONGUE IS BRIGHT RED IN COLOR AND DRY. EYES ARE PERRLA, TONGUE IS MIDLINE. CONTACT AND DROPLET ISOLATION HAVE BEEN IMPLEMENTED AND ENFORCED FOR COVID-19. PT IS WEARING HER UPPER DENTURES. SAFETY MEASURES HAVE BEEN IMPLEMENTED, CALL LIGHT IS WITHIN REACH, BED IS IN LOWEST AND LOCKED POSITION, SIDE RAILS UP X2, WILL CONTINUE TO MONITOR FOR ANY CHANGES.
[2019-08-03 16:00] VITALS: BP 93/54
--- NOTE | 2019-08-03 17:30 | NUR ---
RN NOTES NINO CAREY TO INFORM HIM TO COMPLETE PT HOME MED RECON. WAITING FOR PAGE BACK WILL CONTINUE TO MONITOR FOR ANY CHANGE.
--- NOTE | 2019-08-03 19:03 | NUR ---
RN NOTES EXPLAINED TO THE PT REGARDING OUR NEW POLICY FOR PT BELONGINGS. EXPLAINED TO PT THAT WE HAVE TO RETURN HER BELONGINGS TO A FAMILY MEMBER TO ENSURE THEY DONT GET LOST. PT HAS TOTAL OF 3 RINGS AND 3 BRACELETS. I PLACED 3 BRACELTS IN BAG AND IS AT BEDSIDE ( PT IS UNABLE TO REMOVE RINGS OFF HER FINGERS). SPOKE WITH PATIENT SON LEONARDO, AND HE SAID HE WILL COME TO CORPORATE DIRECTOR TALENT ASSESSMENT BRACELETS TOMORROW MORNING
--- NOTE | 2019-08-03 19:10 | NUR ---
MAT MAN OPENING NOTES: RECEIVED PT A/OX3; VERBAL IN BED RESTING COMFORTABLY. PATIENT IN NO S/SX OF ACUTE DISTRESS AT THIS TIME. NO SOB NOTED. PATIENT'S BREATHING IS EVEN AND UNLABORED. PATIENT IS ON 4 L OF OXYGEN VIA NC; TOLERATING WELL. NOTED IV SITE ON L FOREARM; G#20; PATENT IN INTACT,NO S/S OF INFECTION OR INFILTRATION. PATIENT ON BEDSIDE COMMODE. SAFETY MEASURES HAVE BEEN PROVIDED AND IMPLEMENTED. PATIENT BED ALARM IS ON. HEAD OF BED ELEVATED. BED IS LOCKED, IN LOWEST POSITION AND SIDE RAILS UP. CALL LIGHT WITHIN REACH OF THE PATIENT. WILL CONTINUE TO MONITOR AND REASSESS FOR ANY CHANGES.
--- NOTE | 2019-08-03 19:13 | NUR ---
RN CLOSING NOTES PATIENT IS RESTING IN BED COMFORTABLY AT THIS TIME, DENIES ANY SOB OR RESP DISTRESS. PT IS ON 4L OF OXYGEN VIA NC, TOLERAING WELL. SPOKE WITH PT SON REGARDING BELONGINGS PROTOCOL. PAGED DR. NATASHA CH TO INFORM HIM OF MED RECON BUT WAS NOT PAGED BACK. SAFETY MEASURES HAVE BEEN IMPLEMENTED, CALL LIGHT IS WITHIN REACH, BED IS IN LOWEST AND LOCKED POSITION, SIDE RAILS UP X2, PT HAS BEEN ENDORSED TO NIGHTSHIFT RN FOR SUSHMA.
[2019-08-03 20:00] VITALS: BP 94/50
--- NOTE | 2019-08-03 20:00 | NUR ---
RN NOTES PT COMPLAINED OF GENERALIZED PAIN 09/15. MED RECON NOT VERIFIED BY DR. CH AT THIS TIME. CALLED CHIEF PROJECTIONIST MD. DR. THOMPSON AND RECEIVED ORDERS FOR NORCO 5-325 MG PRN FOR PAIN. ORDERS NOTED AND CARRIED OUT.
[2019-08-03] MEDS: ENOXAPARIN SODIUM 40 MG/0.4 ML DISP.SYRIN SQ SCH (20:16)
[2019-08-03] MEDS: HYDROCODONE/APAP 5/325MG 1 EACH TABLET PO PRN (20:17)
[2019-08-03] MEDS: CEFEPIME 2 GM in IV D5W 100 ML IV SCH (20:34)
--- NOTE | 2019-08-03 21:30 | NUR ---
RN NOTES PATIENT REQUESTED FOR SLEEPING MEDICATION. MED RECON STILL NOT VERIFIED BY DR. CH AT THIS TIME. CALLED BIOMETRY TEACHER MD. DR. THOMPSON AGAIN AND RECEIVED ORDERS FOR AMBIEN 5 MG PO HS. ORDERS NOTED AND CARRIED OUT. WILL CONTINUE TO MONITOR.
[2019-08-03] MEDS ORDERED: ZOLPIDEM TARTRATE 10 MG TABLET PO SCH (22:00)
[2019-08-04] VITALS: BP 90/51
[2019-08-04 04:00] VITALS: BP 116/46
[2019-08-04] MEDS: HYDROCODONE/APAP 5/325MG 1 EACH TABLET PO PRN ×2 (04:45→11:23)
--- NOTE | 2019-08-04 06:33 | NUR ---
RN CLOSING NOTE: PATIENT REMAINS IN ROOM RESTING COMFORTABLY.NO SIGNS OF RESPIRATORY, ON O2 OF 4L VIA NC; TOLERATING WELL.PATIENT STATES NO PAIN AT THIS TIME. PATIENT IS CLEAN , DRY AND COMFORTABLE THROUGHOUT THE SHIFT.ALL DUE MEDS GIVEN ORDERED ; PATIENT TOLERATED WELL. SAFETY MEASURES IMPLEMENTED, BED IN LOWEST POSITION, LOCKED, SIDE RAILS UP, CALL LIGHT WITHIN REACH. ENDORSED TO INCOMING SHIFT RN FOR CONTINUITY OF CARE.
[2019-08-04 07:13] LABS: BASOPHILS % (AUTO) 0.4 % (0.0-2.0); EOSINOPHILS % (AUTO) 2.7 % (0.0-6.0); HEMATOCRIT 38 % (33-45); HEMOGLOBIN 12.8 g/dL (11.5-14.8); LYMPHOCYTES # (AUTO) 0.8 /CMM (0.8-4.8); MEAN CORPUSCULAR HGB CONC 34 g/dl (31.0-36.0); MEAN CORPUSCULAR VOLUME 93 fL (82-100); MONOCYTES # (AUTO) 0.2 /CMM (0.1-1.30); NEUTROPHILS # (AUTO) 1.9 /CMM (1.8-8.9); NEUTROPHILS % (AUTO) 63.9 % (43.0-81.0); PLATELET COUNT (AUTO) 160 /CMM (150-450); RED BLOOD CELL COUNT(AUTO) 4.11 MIL/uL (4.0-5.2)
[2019-08-04 07:23] LABS: D-DIMER 4.06 mg/L(FEU (0.17-0.50)
[2019-08-04 07:27] LABS: ALBUMIN 2.8 g/dL (3.4-5.0); BILIRUBIN,TOTAL 0.4 mg/dL (0.2-1.0); CALCIUM, SERUM 8.4 mg/dL (8.5-10.1); TOTAL PROTEIN, SERUM 7.2 g/dL (6.4-8.2)
[2019-08-04 07:42] LABS: POTASSIUM 2.8 mmol/L (3.5-5.1)
[2019-08-04 08:00] VITALS: BP 117/72
--- NOTE | 2019-08-04 08:00 | NUR ---
RN OPENING NOTES PT IS LAYING DOWN COMFORTABLY. PT IS A/A/O X3.THERE IS NO S/S OF DISTRESS. PT HAS UN LABORED BREATHING AND ON 4L VIA NC SATING ABOVE 95%.PT HAS IV ACCESS ON LFA 20 G,PATENT AND FLUSHES WELL, DRESSING IS DRY/ INTACT/ CLEAN. PT ON CLINICAL PSYCHOLOGY PROFESSOR SHOWINF SR IN 60S.SAFETY MEASURES IN PLACE BED AT LOWEST POSITION, LOCKED,CALL LIGHT WITHIN REACH, SIDE RAILS UPX2. WILL CONTINUE TO MONITOR
[2019-08-04 09:05] LABS: THYROID STIMULATING HORMONE 0.678 uIU/mL (0.358-3.74)
[2019-08-04] MEDS: ENOXAPARIN SODIUM 40 MG/0.4 ML DISP.SYRIN SQ SCH (09:08)
[2019-08-04 09:29] LABS: C-REACTIVE PROTEIN 23.6 mg/dL (0.0-0.9)
[2019-08-04] MEDS ORDERED: POTASSIUM CHLORIDE 20 MEQ TAB.PRT.SR PO SCH (09:30)
[2019-08-04 10:10] LABS: PHOSPHORUS 3.1 mg/dL (2.5-4.9)
[2019-08-04] MEDS: POTASSIUM CL. PREMIX PERIPHER. 50 ML IV SCH ×6 (10:48→19:12)
[2019-08-04] MEDS ORDERED: HYDROXYCHLOROQUINE 200 MG TABLET PO SCH (11:00)
[2019-08-04 11:38] LABS: MAGNESIUM 2.1 mg/dL (1.8-2.4); PHOSPHORUS 3.1 mg/dL (2.5-4.9)
[2019-08-04 12:00] VITALS: BP 117/79
[2019-08-04] MEDS: GABAPENTIN 300 MG CAPSULE PO SCH ×2 (13:19→17:21)
[2019-08-04 16:00] VITALS: BP 128/81
[2019-08-04] MEDS: ACETAMINOPHEN 325 MG TABLET PO PRN (16:13)
[2019-08-04] MEDS ORDERED: FUROSEMIDE 20 MG/2 ML VIAL IV ONE (16:30)
--- NOTE | 2019-08-04 18:00 | NUR ---
RN CLOSING NOTE PT IS RESTING ON THE BED COMFORTABLY. THERE IS NO S/S OF DISTRESS. PT HAS UNLABORED BREATHING. PT IS ON 4 L VIA NC SATTING 96%. NO ACUTE CHANGES DURING MY SHIFT.SAFETY MEASURES IN PLACE BED AT LOWEST POSITION, LOCKED, CALL LIGHT WITHIN REACH, SIDE RAILS UPX2. WILL ENDORSE TO INCOMING SHIFT FOR CONTINUITY OF CARE.
--- NOTE | 2019-08-04 19:30 | NUR ---
ORION RN NOTES RECEIVED PATIENT IN BED ALERT AWAKE ORIENTED X2. BREATHING NORMAL NO SOB NOTED CONTINUES ON O2 4L/MIN VIA NC SATURATING 98%. SR IN 60'S ON TELE MONITOR. RESPIRATION LISSETTE NON LABORED. IV SITE LFA INTACT PATENT FLUSHING WELL. SKIN WARM AND DRY TO TOUCH. ABDOMEN SOFT AND NON DISTENDED. SAFETY MEASURES IN PLACE, BED IN LOW AND LOCKED POSITION. CALL LIGHT WITHIN REACH. WILL CONT TO MONITOR.
[2019-08-04 20:00] VITALS: BP 148/90
[2019-08-04] MEDS: CEFEPIME 2 GM in IV D5W 100 ML IV SCH (20:50)
[2019-08-04] MEDS: SENNOSIDES 8.6 MG TABLET PO SCH (21:22)
[2019-08-05 01:10] VITALS: BP 125/80
[2019-08-05 04:00] VITALS: BP 111/63
[2019-08-05] MEDS: HYDROCODONE/APAP 5/325MG 1 EACH TABLET PO PRN ×3 (05:40→17:48)
--- NOTE | 2019-08-05 06:34 | NUR ---
ORION RN NOTES PATIENT RESTED THROUGHOUT THE NIGHT. NO S/S OF ACUTE DISTRESS NOTED. DUE MEDICATIONS WERE GIVEN ALONG WITH PRN NORCO FOR GENERAL BODY ACHES NOTED TO BE EFFECTIVE. CONTINUES ON OXYGEN 4L/MIN VIA NC SATURATING 96% AT THIS TIME. IV SITE INTACT PATENT FLUSHING WELL. KEPT CLEAN DRY AND COMFORTABLE. ALL NEEDS ATTENDED. SAFETY MEASURES IN PLACE, BED IN LOW AND LOCKED POSITION. CALL LIGHT WITHIN REACH. WILL ENDORSE TO AM NURSE FOR SUSHMA.
[2019-08-05 06:35] LABS: BASOPHILS % (AUTO) 0.2 % (0.0-2.0); HEMATOCRIT 42 % (33-45); LYMPHOCYTES % (AUTO) 19.9 % (20.0-44.0); MEAN CORPUSCULAR HGB CONC 34 g/dl (31.0-36.0); MEAN CORPUSCULAR VOLUME 93 fL (82-100); MONOCYTES # (AUTO) 0.5 /CMM (0.1-1.30); MONOCYTES % (AUTO) 9.4 % (2.0-12.0); NEUTROPHILS # (AUTO) 3.6 /CMM (1.8-8.9); NEUTROPHILS % (AUTO) 70.5 % (43.0-81.0); PLATELET COUNT (AUTO) 244 /CMM (150-450); RED BLOOD CELL COUNT(AUTO) 4.49 MIL/uL (4.0-5.2); WHITE BLOOD COUNT (AUTO) 5.1 K/uL (4.3-11.0)
[2019-08-05 07:03] LABS: ALBUMIN 3.1 g/dL (3.4-5.0); BILIRUBIN,TOTAL 0.5 mg/dL (0.2-1.0); CALCIUM, SERUM 8.9 mg/dL (8.5-10.1); PHOSPHORUS 2.1 mg/dL (2.5-4.9); POTASSIUM 3.1 mmol/L (3.5-5.1); TOTAL PROTEIN, SERUM 8.5 g/dL (6.4-8.2)
[2019-08-05] MEDS ORDERED: LEVOTHYROXINE SODIUM 150 MCG TABLET PO SCH (07:30)
[2019-08-05 07:48] LABS: ABG BASE EXCESS 8.2 mmol/L; ABG OXYGEN SATURATION 97.7 % (92.0-98.5); ABG PCO2 41.5 mmHg (35.0-45.0); ABG PH 7.506 (7.350-7.450); ABG PO2 94.7 mmHg (75.0-100.0); AaDO2 142.8 mmHg; COHb 0.8 % (0.5-1.5); MetHb 0.3 % (0.0-1.5); O2Hb 96.6 % (94.0-97.0); SITE, ABG Right Radial; VENT MODE, BG NC 5 L
[2019-08-05 08:00] VITALS: BP 105/67
--- NOTE | 2019-08-05 08:00 | NUR ---
RN OPENING NOTES PT IS LAYING DOWN COMFORTABLY. PT IS A/A/O X3.THERE IS NO S/S OF DISTRESS. PT HAS UN LABORED BREATHING AND ON 5L VIA NC SATING 95%.PT HAS IV ACCESS ON LFA 20 G,PATENT, AND FLUSHES WELL, DRESSING IS DRY/ INTACT/ CLEAN. PT ON FACILITY EXAMINER SHOWING SR HR IN 80s.SAFETY MEASURES IN PLACE BED AT LOWEST POSITION, LOCKED,CALL LIGHT WITHIN REACH, SIDE RAILS UPX2. WILL CONTINUE TO MONITOR
[2019-08-05] MEDS: PANTOPRAZOLE 40 MG TABLET.DR PO SCH (08:18)
[2019-08-05] MEDS: GABAPENTIN 300 MG CAPSULE PO SCH ×3 (08:18→17:48)
[2019-08-05] MEDS: ENOXAPARIN SODIUM 40 MG/0.4 ML DISP.SYRIN SQ SCH (08:19)
[2019-08-05] MEDS: DOCUSATE SODIUM 100 MG CAPSULE PO SCH (08:19)
[2019-08-05] MEDS ORDERED: HYDROXYCHLOROQUINE 200 MG TABLET PO SCH (09:00)
[2019-08-05] MEDS: LEVOTHYROXINE SODIUM 100 MCG TABLET PO SCH (09:06)
[2019-08-05] MEDS ORDERED: POTASSIUM PHOSPHATE MM 15 MMOL in IV NS 0.9% 250 ML IV SCH (10:30)
[2019-08-05] MEDS ORDERED: POTASSIUM CHLORIDE 20 MEQ TAB.PRT.SR PO SCH (11:00)
[2019-08-05] MEDS: POTASSIUM PHOSPHATE MM 7.5 MMOL in IV NS 0.9% 100 ML IV SCH ×3 (11:49→18:16)
[2019-08-05 12:00] VITALS: BP 121/59
[2019-08-05] MEDS ORDERED: INVESTIGATIONAL MED MISC 1 EA in IV NS 0.9% 250 ML IV ONE (14:00)
--- NOTE | 2019-08-05 15:50 | NUR ---
RN NOTES PT PULLED THE IV OUT. 2 UNSUCCESSFUL ATTEMPTS.SIDE SHOW ENTERTAINER NOTIFIED WAITING FOR IV NURSE.
[2019-08-05 16:00] VITALS: BP 128/78
[2019-08-05] MEDS: ACETAMINOPHEN 325 MG TABLET PO PRN (16:23)
--- NOTE | 2019-08-05 18:00 | NUR ---
RN CLOSING NOTE PT IS RESTING ON THE BED COMFORTABLY. THERE IS NO S/S OF DISTRESS. PT HAS UNLABORED BREATHING. PT IS ON 5 L VIA NC SATTING 96%. NO ACUTE CHANGES DURING MY SHIFT.SAFETY MEASURES IN PLACE BED AT LOWEST POSITION, LOCKED, CALL LIGHT WITHIN REACH, SIDE RAILS UPX2. WILL ENDORSE TO INCOMING SHIFT FOR CONTINUITY OF CARE.
--- NOTE | 2019-08-05 19:15 | NUR ---
RN OPENING NOTE RECEIVED PT IN BED IN SEMI-FOWLERS POSITION. ON O2 VIA NC AT 5L/MIN. PT SATURATING AT 97%. JEANIE MIDLINE PATENT AND INTACT, FLUSHING WELL. SAFETY MEASURES IN PLACE, BED IN LOWEST POSITION AND LOCKED, CALL LIGHT WITHIN REACH, SIDE RAILS UP X2. WILL CONTINUE TO MONITOR PT.
[2019-08-05 20:00] VITALS: BP 140/76
[2019-08-05] MEDS: CEFEPIME 2 GM in IV D5W 100 ML IV SCH (21:19)
[2019-08-05] MEDS: SENNOSIDES 8.6 MG TABLET PO SCH (21:19)
[2019-08-06] VITALS (8 sets, daily range): BP systolic 104–133; BP diastolic 50–87
[2019-08-06] MEDS: ACETAMINOPHEN 325 MG TABLET PO PRN ×3 (00:14→19:43)
--- NOTE | 2019-08-06 04:14 | NUR ---
RN NOTE TEMPERATURE 102 ORAL, HR 87. COOLING MEASURES APPLIED. TYLENOL GIVEN.
--- NOTE | 2019-08-06 05:18 | NUR ---
RN NOTE RECHECKED TEMP 99.7 ORALLY, PT AWAKE AND COMFORTABLE. NO C/O PAIN, NOT IN ANY DISTRESS.
--- NOTE | 2019-08-06 06:31 | NUR ---
RN CLOSING NOTE PT IN BED IN SEMI-FOWLERS POSITION AWAKE AND RESTING. ON O2 VIA NC AT 5L/MIN TOLERATING WELL. PT SATURATING AT 97% AND IN NO DISTRESS, JEANIE MIDLINE PATENT AND INTACT, FLUSHING WELL. NO C/O PAIN DURING SHIFT SAFETY MEASURES IN PLACE, BED IN LOWEST POSITION AND LOCKED, CALL LIGHT WITHIN REACH, SIDE RAILS UP X3. ENDORSED TO AM NURSE FOR SUSHMA
[2019-08-06 06:37] LABS: BASOPHILS % (AUTO) 0.5 % (0.0-2.0); EOSINOPHILS % (AUTO) 0.7 % (0.0-6.0); HEMATOCRIT 38 % (33-45); HEMOGLOBIN 12.8 g/dL (11.5-14.8); LYMPHOCYTES # (AUTO) 0.8 /CMM (0.8-4.8); LYMPHOCYTES % (AUTO) 16.2 % (20.0-44.0); MEAN CORPUSCULAR HGB CONC 33 g/dl (31.0-36.0); MEAN CORPUSCULAR VOLUME 93 fL (82-100); MONOCYTES # (AUTO) 0.3 /CMM (0.1-1.30); MONOCYTES % (AUTO) 6.8 % (2.0-12.0); NEUTROPHILS # (AUTO) 3.8 /CMM (1.8-8.9); NEUTROPHILS % (AUTO) 75.8 % (43.0-81.0); PLATELET COUNT (AUTO) 259 /CMM (150-450); RED BLOOD CELL COUNT(AUTO) 4.12 MIL/uL (4.0-5.2); WHITE BLOOD COUNT (AUTO) 5.1 K/uL (4.3-11.0)
[2019-08-06 07:03] LABS: ALBUMIN 2.7 g/dL (3.4-5.0); BILIRUBIN,TOTAL 0.4 mg/dL (0.2-1.0); CALCIUM, SERUM 8.3 mg/dL (8.5-10.1); MAGNESIUM 1.8 mg/dL (1.8-2.4); PHOSPHORUS 2.4 mg/dL (2.5-4.9); POTASSIUM 3.3 mmol/L (3.5-5.1); TOTAL PROTEIN, SERUM 7.4 g/dL (6.4-8.2)
--- NOTE | 2019-08-06 07:50 | NUR ---
RN OPENING NOTE Patient is sitting in bed, A/O x3, showing no signs of acute distress or SOB, breathing is even and unlabored saturating 94% on 5L NC. Tele monitor sinus rhythm 80s. JEANIE midline noted is clean and intact flushing well. Bed is in lowest position, side rails x3 in upright position, call light is within reach, fall safety and aspiration precautions enforced. Will continue with plan of care.
[2019-08-06] MEDS: DOCUSATE SODIUM 100 MG CAPSULE PO SCH (08:25)
[2019-08-06] MEDS: LEVOTHYROXINE SODIUM 100 MCG TABLET PO SCH (08:25)
[2019-08-06] MEDS: PANTOPRAZOLE 40 MG TABLET.DR PO SCH (08:25)
[2019-08-06] MEDS: GABAPENTIN 300 MG CAPSULE PO SCH ×3 (08:25→16:54)
[2019-08-06] MEDS: ENOXAPARIN SODIUM 40 MG/0.4 ML DISP.SYRIN SQ SCH (08:26)
[2019-08-06] MEDS: HYDROCODONE/APAP 5/325MG 1 EACH TABLET PO PRN ×2 (08:40→19:33)
[2019-08-06] MEDS: POTASSIUM CL. PREMIX PERIPHER. 50 ML IV SCH ×4 (09:57→12:49)
[2019-08-06] MEDS: NEUTRA PHOS 1 POWD.PACKET PO SCH ×2 (11:49→17:58)
[2019-08-06] MEDS: INVESTIGATIONAL MED MISC 1 EA in IV NS 0.9% 250 ML IV SCH (14:01)
--- NOTE | 2019-08-06 14:09 | NUR ---
RN NOTE BP 128/76, HR 75. Remdisivir started. Will continue to monitor.
--- NOTE | 2019-08-06 18:23 | NUR ---
RN CLOSING NOTE Patient is sitting in bed, A/O x3, showing no signs of acute distress or SOB, breathing is even and unlabored saturating 94% on 5L NC. Tele monitor sinus rhythm 80s. JEANIE midline noted is clean and intact running TKO. All patient needs met, all due medications given. Patient kept clean and dry throughout shift, uses bedside commode with minumum assistance. Bed is in lowest position, side rails x3 in upright position, call light is within reach, fall safety and aspiration precautions enforced. Will endorse to night cleaner. Addendum: 08/06/19 at 1826 by BONIFACIO BETANCOURT RN Patient has been titrated down to 4L NC, saturating 94%
--- NOTE | 2019-08-06 20:00 | NUR ---
RN OPENING NOTES PT RECEIVED LAYING DOWN IN THE BED. A/OX3.THERE IS NO S/S OF RESPIRATORY DISTRESS.PT HAS UNLABORED BREATHING. PT IS ON 4 L O2 VIA NASAL CANULA SATING 97%.PT HAS MIDLINE 18 G IN JEANIE PATENT,DRESSING INTACT. PT SATED SHE HAS PAIN IN LOWER BACK 5/10 AND ALSO PT HAS FEVER OF 101.8.NORCO GIVEN FOR PAIN. TYLENOL AND ICE PACKS PROVIDED FOR FEVER. PT IS ON FINANCIAL INSTITUTION VICE PRESIDENT SHOWING SR AND HR OF 84. SAFETY MEASURES IN PLACE BED AT LOWEST POSITION,CALL LIGHT IN REACH,SIDE RAILS UPX2.WILL CONTINUE TO MONITOR FOR ANY CHANGES.
[2019-08-06] MEDS: SENNOSIDES 8.6 MG TABLET PO SCH ×3 (21:35→22:00)
[2019-08-06] MEDS: CEFEPIME 2 GM in IV D5W 100 ML IV SCH (21:35)
--- NOTE | 2019-08-06 21:49 | NUR ---
RN NOTE LASHAWNOKOT IS NOT ADMINISTERED D/T PT REFUSAL. PT STATED SHE HAD DIARRHEA THIS MORNING. MEDS NOT RETURNED TO [facility] BECAUSE MEDS ALREADY WERE IN THE ROOM AND PT IS COVID ISOLATION.
[2019-08-07] VITALS: BP 119/75
[2019-08-07] MEDS: HYDROCODONE/APAP 5/325MG 1 EACH TABLET PO PRN ×4 (03:23→23:01)
[2019-08-07 04:00] VITALS: BP 128/62
--- NOTE | 2019-08-07 06:00 | NUR ---
RN CLOSING NOTES PT IS SLEEPING THE BED COMFORTABLY. THERE IS NO S/S OF DISTRESS. PT HAS UNLABORED BREATHING. PT IS ON 2 L VIA NC SATTING 97%. VSS. NO ACUTE CHANGES DURING MY SHIFT.SAFETY MEASURES IN PLACE BED AT LOWEST POSITION, LOCKED, CALL LIGHT WITHIN REACH, SIDE RAILS UPX2. WILL ENDORSE TO INCOMING SHIFT FOR CONTINUITY OF CARE.
--- NOTE | 2019-08-07 06:00 | NUR ---
RN CLOSING NOTE PT IS SLEEPING IN THE BED. THREE IS NO S/S OF RESPIRATORY DISTRESS. PT HAS UNLABORED BREATHING.PT IS ON 2L VIA NC SATTING 95%. TELE MONITOR SHOWING SR AND HR IN 70s. NO ACUTE CHANGES DURING MY SHIFT. SAFETY MEASURES IN PLACE BED AT LOWEST POSITION,LOCKED,CALL LIGHT IN REACH,SIDE RAILS UPX2.WILL ENDORSE TO INCOMING SHIFT FOR CONTINUITY OF CARE
[2019-08-07 06:26] LABS: BASOPHILS % (AUTO) 0.3 % (0.0-2.0); EOSINOPHILS % (AUTO) 1.4 % (0.0-6.0); HEMATOCRIT 37 % (33-45); LYMPHOCYTES # (AUTO) 1.3 /CMM (0.8-4.8); LYMPHOCYTES % (AUTO) 20.6 % (20.0-44.0); MEAN CORPUSCULAR HGB CONC 33 g/dl (31.0-36.0); MEAN CORPUSCULAR VOLUME 93 fL (82-100); MONOCYTES # (AUTO) 0.4 /CMM (0.1-1.30); MONOCYTES % (AUTO) 6.6 % (2.0-12.0); NEUTROPHILS # (AUTO) 4.3 /CMM (1.8-8.9); NEUTROPHILS % (AUTO) 71.1 % (43.0-81.0); PLATELET COUNT (AUTO) 292 /CMM (150-450); RED BLOOD CELL COUNT(AUTO) 3.93 MIL/uL (4.0-5.2); WHITE BLOOD COUNT (AUTO) 6.1 K/uL (4.3-11.0)
[2019-08-07 06:42] LABS: ALBUMIN 2.5 g/dL (3.4-5.0); BILIRUBIN,TOTAL 0.4 mg/dL (0.2-1.0); CALCIUM, SERUM 8.3 mg/dL (8.5-10.1); CREATININE 0.9 mg/dL (0.6-1.3); MAGNESIUM 1.8 mg/dL (1.8-2.4); PHOSPHORUS 3.1 mg/dL (2.5-4.9); POTASSIUM 3.4 mmol/L (3.5-5.1)
[2019-08-07 08:00] VITALS: BP 129/92
--- NOTE | 2019-08-07 08:00 | NUR ---
RN NOTES PATIENT IN BED RESTING NO SOB OR ACUTE DISTRESS NOTED. PATIENT ALERT, ORIENTED X3. MIDLINE INTACT PATENT. BED IN LOW LOCKED POSITION. CALL LIGHT WITHIN REACH. WILL CONTINUE TO MONITOR.
[2019-08-07] MEDS: PANTOPRAZOLE 40 MG TABLET.DR PO SCH (08:18)
[2019-08-07] MEDS: LEVOTHYROXINE SODIUM 100 MCG TABLET PO SCH (08:18)
[2019-08-07] MEDS: GABAPENTIN 300 MG CAPSULE PO SCH ×3 (08:18→16:21)
[2019-08-07] MEDS: DOCUSATE SODIUM 100 MG CAPSULE PO SCH (08:18)
[2019-08-07] MEDS: ENOXAPARIN SODIUM 40 MG/0.4 ML DISP.SYRIN SQ SCH (08:20)
[2019-08-07] MEDS ORDERED: POTASSIUM CHLORIDE 20 MEQ TAB.PRT.SR PO SCH (10:30)
[2019-08-07 12:00] VITALS: BP 112/61
[2019-08-07] MEDS: INVESTIGATIONAL MED MISC 1 EA in IV NS 0.9% 250 ML IV SCH (14:40)
[2019-08-07 16:00] VITALS: BP 135/84
--- NOTE | 2019-08-07 18:52 | NUR ---
STOCK SUPERVISOR NOTES PATIENT IN BED RESTING NO SOB OR ACUTE DISTRESS NOTED. ALL DUE MEDICATIONS ADMINISTERED. ALL NEEDS MET. NO ACUTE CHANGES NOTED DURING SHIFT. WILL ENDORSE CARE TO PM SHIFT.
[2019-08-07] MEDS: ACETAMINOPHEN 325 MG TABLET PO PRN (19:36)
[2019-08-07 20:00] VITALS: BP 131/68
--- NOTE | 2019-08-07 20:00 | NUR ---
RN OPENING NOTES PT RECEIVED LAYING DOWN IN THE BED. A/OX3.THERE IS NO S/S OF RESPIRATORY DISTRESS.PT HAS UNLABORED BREATHING. PT IS ON 2 L O2 VIA NASAL CANULA SATING 97%.PT HAS MIDLINE 18 G IN JEANIE PATENT,DRESSING INTACT. PT SATED SHE HAS LOWER BACK PAIN 2/10 TYLENOL GIVEN. PACKS . PT IS ON TELE MONITOR SHOWING SR AND HR IN 60s. SAFETY MEASURES IN PLACE BED AT LOWEST POSITION,CALL LIGHT IN REACH,SIDE RAILS UPX2.WILL CONTINUE TO MONITOR FOR ANY CHANGES.
[2019-08-07] MEDS: CEFEPIME 2 GM in IV D5W 100 ML IV SCH (21:12)
[2019-08-07] MEDS: SENNOSIDES 8.6 MG TABLET PO SCH (21:27)
--- NOTE | 2019-08-07 21:27 | NUR ---
RN NOTE [place] IS NOT ADMINISTERED D/T PT REFUSAL. PT STATED SHE HAD DIARRHEA THIS MORNING.
[2019-08-08] VITALS (7 sets, daily range): BP systolic 113–142; BP diastolic 64–90
[2019-08-08] MEDS: HYDROCODONE/APAP 5/325MG 1 EACH TABLET PO PRN ×4 (05:18→22:05)
--- NOTE | 2019-08-08 06:00 | NUR ---
RN CLOSING NOTE PT IS SLEEPING IN THE BED COMFORTABLY. THERE IS NO S/S OF DISTRESS. PT HAS UNLABORED BREATHING. PT IS ON 2 L VIA NC SATTING 96%. VSS. NO ACUTE CHANGES DURING MY SHIFT.SAFETY MEASURES IN PLACE BED AT LOWEST POSITION, LOCKED, CALL LIGHT WITHIN REACH, SIDE RAILS UPX2. WILL ENDORSE TO INCOMING SHIFT FOR CONTINUITY OF CARE.
[2019-08-08 06:45] LABS: BASOPHILS % (AUTO) 0.2 % (0.0-2.0); EOSINOPHILS % (AUTO) 2.3 % (0.0-6.0); HEMATOCRIT 37 % (33-45); HEMOGLOBIN 12.2 g/dL (11.5-14.8); LYMPHOCYTES % (AUTO) 16.3 % (20.0-44.0); MEAN CORPUSCULAR HGB CONC 33 g/dl (31.0-36.0); MEAN CORPUSCULAR VOLUME 93 fL (82-100); MONOCYTES # (AUTO) 0.5 /CMM (0.1-1.30); NEUTROPHILS # (AUTO) 4.4 /CMM (1.8-8.9); NEUTROPHILS % (AUTO) 73.2 % (43.0-81.0); PLATELET COUNT (AUTO) 322 /CMM (150-450); RED BLOOD CELL COUNT(AUTO) 3.99 MIL/uL (4.0-5.2)
[2019-08-08 06:59] LABS: ALBUMIN 2.4 g/dL (3.4-5.0); BILIRUBIN,DIRECT 0.2 mg/dL (0.0-0.2); BILIRUBIN,TOTAL 0.5 mg/dL (0.2-1.0); CALCIUM, SERUM 8.5 mg/dL (8.5-10.1); CREATININE 0.8 mg/dL (0.6-1.3); POTASSIUM 3.4 mmol/L (3.5-5.1); TOTAL PROTEIN, SERUM 6.8 g/dL (6.4-8.2)
--- NOTE | 2019-08-08 07:18 | NUR ---
BONE DRIER OPENING NOTES PT IS SLEEPING IN THE BED COMFORTABLY. THERE IS NO S/S OF DISTRESS. PT HAS UNLABORED BREATHING. PT IS ON 2 L VIA NC SATING 96%. VS. NO ACUTE CHANGES DURING MY SHIFT.SAFETY MEASURES IN PLACE BED AT LOWEST POSITION, LOCKED, CALL LIGHT WITHIN REACH, SIDE RAILS UPX2. WILL CONTINUE TO MONITOR.
[2019-08-08] MEDS: LEVOTHYROXINE SODIUM 100 MCG TABLET PO SCH (07:54)
[2019-08-08] MEDS: PANTOPRAZOLE 40 MG TABLET.DR PO SCH (07:54)
[2019-08-08] MEDS: DOCUSATE SODIUM 100 MG CAPSULE PO SCH (08:04)
[2019-08-08] MEDS: GABAPENTIN 300 MG CAPSULE PO SCH ×3 (08:04→16:03)
[2019-08-08] MEDS: ENOXAPARIN SODIUM 40 MG/0.4 ML DISP.SYRIN SQ SCH (08:05)
[2019-08-08] MEDS: POTASSIUM CHLORIDE 20 MEQ TAB.PRT.SR PO SCH ×3 (10:29→12:51)
[2019-08-08] MEDS: FUROSEMIDE 40 MG/4 ML VIAL IV SCH ×2 (10:35→14:58)
[2019-08-08] MEDS: INVESTIGATIONAL MED MISC 1 EA in IV NS 0.9% 250 ML IV SCH (15:03)
--- NOTE | 2019-08-08 19:38 | NUR ---
RN CLOSING NOTES THE PATIENT IS ON BED RESTING. VS ARE TABLE AND WNL. PATIENT IS ON 2L OF O2 NC WITH NO RESPIRATORY DISTRESS. PATIENT IS A/O X3. THE PATIENT IS ON EXTERNAL TELEMONITOR, SR, HR 85. IV LINE ON R- HAND, FLUSHING WELL. PATIENT TOLERATES ACTIVITY WELL. ALL SAFETY MECHANISMS IN PLACE AT HIS TIME. CALL LIGHT WITHIN REACH. BED LOCKED IN THE SAFEST LOWEST POSITION. SIDE RAILS UP X2. WILL ENDORSE THE NEXT SHIFT.
--- NOTE | 2019-08-08 20:00 | NUR ---
RN OPENING NOTE PT RECEIVED LAYING DOWN IN THE BED COMFORTABLY. THERE IS NO S/S OF DISTRESS. PT HAS NO RESPIRATORY DISTRESS. PT HAS UNLABORED BREATHING, IS ON 2 L VIA NC SATING 96%. TELE MONITOR SHOWING HR IN 60s SR. PT HAS IV 20 G AC S/L, PATENT,DRESSING IS DRY AND INTACT.SAFETY MEASURES IN PLACE BED AT LOWEST POSITION,LOCKED, CALL LIGHT IN REACH, SIDE RAILS UPX2. WILL CONTINUE TO MONITOR.
[2019-08-08] MEDS: CEFEPIME 2 GM in IV D5W 100 ML IV SCH (21:34)
[2019-08-08] MEDS: SENNOSIDES 8.6 MG TABLET PO SCH (22:05)
[2019-08-09] VITALS (8 sets, daily range): BP systolic 113–147; BP diastolic 60–82
[2019-08-09] MEDS: ACETAMINOPHEN 325 MG TABLET PO PRN ×2 (02:54→19:58)
[2019-08-09] MEDS: HYDROCODONE/APAP 5/325MG 1 EACH TABLET PO PRN ×5 (05:55→22:35)
--- NOTE | 2019-08-09 06:00 | NUR ---
RN CLOSING NOTE PT IS AWAKE LAYING IN THE BED COMFORTABLY. THERE IS NO S/S OF DISTRESS. PT HAS UNLABORED BREATHING. PT IS ON 2 L VIA NC SATTING 98%. VSS. NO ACUTE CHANGES DURING MY SHIFT.SAFETY MEASURES IN PLACE BED AT LOWEST POSITION, LOCKED, CALL LIGHT WITHIN REACH, SIDE RAILS UPX2. WILL ENDORSE TO INCOMING SHIFT FOR CONTINUITY OF CARE.
[2019-08-09 06:56] LABS: BASOPHILS % (AUTO) 0.4 % (0.0-2.0); EOSINOPHILS % (AUTO) 2.4 % (0.0-6.0); HEMATOCRIT 41 % (33-45); HEMOGLOBIN 13.7 g/dL (11.5-14.8); LYMPHOCYTES # (AUTO) 1.2 /CMM (0.8-4.8); LYMPHOCYTES % (AUTO) 17.1 % (20.0-44.0); MEAN CORPUSCULAR HGB CONC 33 g/dl (31.0-36.0); MEAN CORPUSCULAR VOLUME 94 fL (82-100); MONOCYTES # (AUTO) 0.8 /CMM (0.1-1.30); MONOCYTES % (AUTO) 10.9 % (2.0-12.0); NEUTROPHILS # (AUTO) 4.9 /CMM (1.8-8.9); NEUTROPHILS % (AUTO) 69.2 % (43.0-81.0); PLATELET COUNT (AUTO) 388 /CMM (150-450); RED BLOOD CELL COUNT(AUTO) 4.42 MIL/uL (4.0-5.2); WHITE BLOOD COUNT (AUTO) 7.1 K/uL (4.3-11.0)
[2019-08-09 07:09] LABS: ALBUMIN 2.7 g/dL (3.4-5.0); BILIRUBIN,TOTAL 0.5 mg/dL (0.2-1.0); MAGNESIUM 1.7 mg/dL (1.8-2.4); POTASSIUM 3.6 mmol/L (3.5-5.1); TOTAL PROTEIN, SERUM 7.3 g/dL (6.4-8.2)
--- NOTE | 2019-08-09 07:15 | NUR ---
RN OPENING NOTES RECEIVED PATIENT SLEEPING IN BED COMFORTABLY, EASILY AROUSED. PT IS AOX4, VERBAL, AND AMBULATORY WITH ASSIST. SHE IS ON 3L OF OXYGEN VIA NC, TOLERATING WELL, NO SOB OR RESP DISTRESS NOTED. TELE MONITOR SHOWING SR, SKIN IS INTACT. JEANIE MIDLINE 18 G IS PATENT AND INTACT. CONTACT AND DROPLET ISO HAVBE BEEN IMPLEMENTED AND ENFORCED FOR COVID 19. SAFETY MEASURES HAVE BEEN IMPLEMENTED, CALL LIGHT IS WITHIN REACH, BED IS IN LOWEST AND LOCKED POSITION, SIDE RAILS UP X2, WILL CONTINUE TO MONITOR FOR ANY CHANGES.
[2019-08-09] MEDS: PANTOPRAZOLE 40 MG TABLET.DR PO SCH (07:57)
[2019-08-09] MEDS: LEVOTHYROXINE SODIUM 100 MCG TABLET PO SCH (07:57)
[2019-08-09] MEDS: GABAPENTIN 300 MG CAPSULE PO SCH ×3 (09:26→16:54)
[2019-08-09] MEDS: DOCUSATE SODIUM 100 MG CAPSULE PO SCH (09:27)
[2019-08-09] MEDS: ENOXAPARIN SODIUM 40 MG/0.4 ML DISP.SYRIN SQ SCH (09:30)
[2019-08-09] MEDS: Magnesium 1GM/D5W 100ML PREMIX 100 ML IV SCH ×2 (11:42→12:49)
[2019-08-09] MEDS: POTASSIUM CHLORIDE 20 MEQ TAB.PRT.SR PO SCH ×3 (11:42→14:30)
[2019-08-09] MEDS: FUROSEMIDE 40 MG/4 ML VIAL IV SCH ×3 (11:43→19:32)
[2019-08-09] MEDS: INVESTIGATIONAL MED MISC 1 EA in IV NS 0.9% 250 ML IV SCH (14:30)
--- NOTE | 2019-08-09 19:00 | NUR ---
RN CLOSING NOTES PT RESTING COMFORTABLY IN BED AT THIS TIME, NO S/SX OF DISTRESS. COMPLETED COURSE OF REMDESIVIR TODAY. NO SOB. NO ACUTE CHANGES OCCURRED, VITALS SIGNS STABLE, PT NEEDS HAVE BEEN MET. SAFETY MEASURES HAVE BEEN IMPLEMENTED, CALL LIGHT IS WITHIN REACH, BED IS IN LOWEST AND STERLING POSITION, SIDE RAIL UP X2, PT HAS BEEN ENDORSED TO NIGHT RN FOR SUSHMA.
--- NOTE | 2019-08-09 19:05 | NUR ---
RN NOTE RECEIVED PATIENT SITTING IN BED, WATCHING TV. ON ISOLATION FOR POSITIVE COVID. A&O X3. BREATHING EVEN AND NON-LABORED VIA ROOM AIR. ABLE TO MAKE NEEDS KNOWN, VERBALLY RESPONSIVE IN LIBERIAN, SPEECH IS CLEAR. ABLE TO AMBULATE TO COMMODE FROM BED WITH MINIMAL ASSISTANCE. IV SITE ON JEANIE MIDLINE IS CLEAN, DRY, AND PATENT. SKIN IS INTACT. CONTINENT OF BOWEL AND BLADDER. IN NO APPARENT DISTRESS NOTED AT THIS TIME. CALL LIGHT IS WITHIN EASY REACH. WILL CONTINUE TO MONITOR.
[2019-08-09] MEDS: CEFEPIME 2 GM in IV D5W 100 ML IV SCH (21:06)
[2019-08-09] MEDS: SENNOSIDES 8.6 MG TABLET PO SCH (21:06)
[2019-08-10] VITALS: BP 128/67
[2019-08-10] MEDS: ACETAMINOPHEN 325 MG TABLET PO PRN ×2 (02:05→15:11)
[2019-08-10 04:00] VITALS: BP 119/69
--- NOTE | 2019-08-10 05:00 | NUR ---
RN NOTE PATIENT REFUSED BED BATH AND LINEN CHANGE AT THIS TIME. PATIENT IS A&O X3. WILL CONTINUE TO MONITOR.
[2019-08-10] MEDS: HYDROCODONE/APAP 5/325MG 1 EACH TABLET PO PRN ×3 (05:37→18:05)
--- NOTE | 2019-08-10 06:31 | NUR ---
RN NOTE PATIENT REMAINED STABLE THROUGHOUT THE NIGHT. NO SIGNIFICANT CHANGES NOTED. WILL ENDORSE TO AM SHIFT RN FOR CONTINUATION OF CARE.
[2019-08-10 06:39] LABS: BASOPHILS % (AUTO) 0.4 % (0.0-2.0); EOSINOPHILS % (AUTO) 2.5 % (0.0-6.0); HEMATOCRIT 40 % (33-45); HEMOGLOBIN 13.6 g/dL (11.5-14.8); LYMPHOCYTES # (AUTO) 1.5 /CMM (0.8-4.8); LYMPHOCYTES % (AUTO) 19.7 % (20.0-44.0); MEAN CORPUSCULAR HGB CONC 34 g/dl (31.0-36.0); MEAN CORPUSCULAR VOLUME 92 fL (82-100); MONOCYTES # (AUTO) 0.9 /CMM (0.1-1.30); MONOCYTES % (AUTO) 11.2 % (2.0-12.0); NEUTROPHILS # (AUTO) 5.1 /CMM (1.8-8.9); NEUTROPHILS % (AUTO) 66.2 % (43.0-81.0); PLATELET COUNT (AUTO) 464 /CMM (150-450); RED BLOOD CELL COUNT(AUTO) 4.37 MIL/uL (4.0-5.2); WHITE BLOOD COUNT (AUTO) 7.7 K/uL (4.3-11.0)
[2019-08-10 06:52] LABS: ALBUMIN 2.8 g/dL (3.4-5.0); BILIRUBIN,TOTAL 0.5 mg/dL (0.2-1.0); CREATININE 0.9 mg/dL (0.6-1.3); MAGNESIUM 2.1 mg/dL (1.8-2.4); PHOSPHORUS 3.7 mg/dL (2.5-4.9); POTASSIUM 3.9 mmol/L (3.5-5.1); TOTAL PROTEIN, SERUM 7.6 g/dL (6.4-8.2)
--- NOTE | 2019-08-10 07:07 | NUR ---
RN OPENING NOTES RECEIVED PATIENT SLEEPING IN BED COMFORTABLY, EASILY AROUSED. PT IS AOX4, VERBAL, AND AMBULATORY WITH ASSIST. SHE IS ON RA, TOLERATING WELL, NO SOB OR RESP DISTRESS. TELE MONITOR SHOWING SR. SKIN IS INTACT. IV SITE ON JEANIE MIDLINE IS PATENT AND INTACT. CONTACT AND DROPLET ISO HAVE BEEN IMPLEMENTED AND ENFORCED FOR COVID 19. SAFETY MEASURES HAVE BEEN IMPLEMENTED, CALL LIGHT IS WITHIN REACH, BED IS IN LOWEST AND LOCKED POSITION, SIDE RAILS UP X2, WILL CONTINUE TO MONITOR FOR ANY CHANGES.
[2019-08-10 08:00] VITALS: BP 140/62
[2019-08-10] MEDS: DOCUSATE SODIUM 100 MG CAPSULE PO SCH (08:08)
[2019-08-10] MEDS: GABAPENTIN 300 MG CAPSULE PO SCH ×3 (08:08→17:19)
[2019-08-10] MEDS: PANTOPRAZOLE 40 MG TABLET.DR PO SCH (08:08)
[2019-08-10] MEDS: LEVOTHYROXINE SODIUM 100 MCG TABLET PO SCH (08:08)
[2019-08-10] MEDS: ENOXAPARIN SODIUM 40 MG/0.4 ML DISP.SYRIN SQ SCH (08:09)
--- NOTE | 2019-08-10 11:06 | NUR ---
RN NOTES REPORT GIVEN TO ANTHONY FIGUEROA FOR [facility]
[2019-08-10 12:00] VITALS: BP 145/69
--- NOTE | 2019-08-10 12:53 | NUR ---
per cm working on dischrge ,waiting for approval from dept. of health.
--- NOTE | 2019-08-10 14:49 | NUR ---
Patient is getting transferred to [facility]. Spoke with Tina about giving report to the Rn switch operators supervisor, but she was not available. Will attempt to call them within an hour.
--- NOTE | 2019-08-10 15:07 | NUR ---
gave report to Jaycob Malik about the patient status at [facility]. They are ready to receive the patient.
[2019-08-10 16:00] VITALS: BP_SYST 116; BP_DIAS 58; BP_DIAS 65
--- NOTE | 2019-08-10 16:50 | NUR ---
Spoke with Jody the daughter of the patient. She is challenging the discharge. She states, " I don't want her to go back to that place. When she is better, we will pick her up from the hospital." The case sealer has been notified. She is trying to get in contact with Jody at this time.
--- NOTE | 2019-08-10 16:55 | NUR ---
[facility] [facility] MANAGER HAKEEM NOTIFIED SHE WILL CONTACT FAMILY.
--- NOTE | 2019-08-10 16:59 | NUR ---
PER BUILD MANAGER HAKEEM SHE SPOKE WITH THE SON MIRIAM AND AGREED TO PROCEED WITH DISCHARGE,SON WILL TALK TO HER SISTER REGARDING DISCHARGE PER CM.
--- NOTE | 2019-08-10 18:06 | NUR ---
RN CLOSING NOTES The patient is being discharge at this moment. The VS are WNL. The patient is SR, HR 70. Pt has no respiratory distress or evident change in condition. The patient will be transported to [facility] by EMT. The patient remains A/O x4. All needs have been rendered at this time.
== END 2019-08-10 18:03 | DRG 177 ==
LOC: ER 12:48 → TELE1 15:05 → EDBD 15:05 → TELE-TD 15:12 → TELE1 08-05 11:13
PROVIDERS: ADMIT Hospitalist; ATTEND Internal Medicine
PROC: 05HY33Z Insertion of Infusion Device into Upper Vein, Percutaneous Approach (ICD-10-PCS; principal; 2019-08-05)
DX: U07.1 COVID-19 (principal); J96.01 Acute respiratory failure with hypoxia; G93.41 Metabolic encephalopathy; J12.89 Other viral pneumonia; I50.32 Chronic diastolic (congestive) heart failure; N39.0 Urinary tract infection, site not specified; E44.1 Mild protein-calorie malnutrition; J44.0 Chronic obstructive pulmonary disease with (acute) lower respiratory infection; I11.0 Hypertensive heart disease with heart failure; K21.9 Gastro-esophageal reflux disease without esophagitis; Z87.01 Personal history of pneumonia (recurrent); Z79.82 Long term (current) use of aspirin; Z79.899 Other long term (current) drug therapy; E87.6 Hypokalemia; E86.0 Dehydration; Z86.73 Personal history of transient ischemic attack (TIA), and cerebral infarction without residual deficits; I45.81 Long QT syndrome; G47.00 Insomnia, unspecified; F41.9 Anxiety disorder, unspecified; F32.9 Major depressive disorder, single episode, unspecified; E03.9 Hypothyroidism, unspecified; E78.5 Hyperlipidemia, unspecified; I25.10 Atherosclerotic heart disease of native coronary artery without angina pectoris; I49.5 Sick sinus syndrome; E83.39 Other disorders of phosphorus metabolism
CPT/HCPCS: 36410; 36415; 36600; 71045-TC; 80048-TC; 80053-TC; 80061-TC; 80076-TC; 81000-TC; 82550-TC; 82728-TC; 83605-TC; 83615-TC; 83735-TC; 83880; 84100-TC; 84439-TC; 84443-TC; 84484-TC; 85025-TC; 85378-TC; 85385-TC; 85610-TC; 85730-TC; 86140-TC; 87040-TC; 87081-TC; 87086-TC; 87186-TC; 93307-TC; A6253; A6403; G0378; J0692; J1650; J1940; J2060; J2543; J3370; J3475; J3480; J3490; J7030; J7040; J7050; J7060; U0003-CS